=== PATIENT | male | born 1990 | race Two or more races ===

== ENCOUNTER 2019-09-14 22:09 | Emergency (ER) | payer OTHER ==
[~2019-09-14] VITALS: Ht 172.7 cm; Wt 78.5 kg
--- NOTE | 2019-09-14 22:39 | NUR ---
Patient walked into ER c/o nasal congestion, coughing up phlem and sore throat for about [address] Santo into eval patient.
--- NOTE | 2019-09-14 22:52 | NUR ---
Patient discharged to home in stable conditon with mother taking patient home. Written and verbal after care instructions given. Patient verbalizes understanding of instructions. Walked out of ER with no distress noted.
== END 2019-09-14 22:54 | disposition home or self-care (01) ==
LOC: ER 22:09
DX: B34.9 Viral infection, unspecified (principal); E10.9 Type 1 diabetes mellitus without complications; Z79.4 Long term (current) use of insulin
CPT/HCPCS: A4663